=== PATIENT | male | born 1990 | race Caucasian/White ===

== ENCOUNTER 2016-11-11 20:08 | Emergency (ER) | payer OTHER ==
[~2016-11-11] VITALS: Ht 185.4 cm; Wt 97.5 kg
[2016-11-11 20:10] VITALS: BP 150/70; PULSE 72; RESP 20; TEMP 98; O2SAT 98
--- NOTE | 2016-11-11 20:50 | NUR ---
pt to room 1, assumed pt. care
[2016-11-11] MEDS ORDERED: LIDOCAINE 1% 10 MG/ML, 20 ML MDV IJ ONE (21:00)
[2016-11-11] MEDS ORDERED: DIPH-TET-PERTUS Vaccine 0.5 ML VIAL (ADACEL) IM ONE (21:00)
[2016-11-11] MEDS ORDERED: BACITRACIN 1 GM OINT TP ONE (21:00)
--- NOTE | 2016-11-11 21:00 | NUR ---
edin CONNORS at bedside examining the pt.
--- NOTE | 2016-11-11 21:02 | NUR ---
pt. to ER [id number] with a Laceration to his left index finger, as per pt. the injury happened at 1930 when he was cutting a piece of [place] loaf bread, no active bleeding at site at this moment, cap refill < 3 secs, able to move all fingers including the affected one, states took nothing for pain, denies n/v/d denies dizziness, states he took nothing for his pain on quality assurance monitor
--- NOTE | 2016-11-11 21:19 | NUR ---
edin [employer] at bedside for suture placement
[2016-11-11 22:10] VITALS: BP 124/69; PULSE 72; RESP 20; TEMP 98; O2SAT 98
--- NOTE | 2016-11-11 22:10 | NUR ---
Patient given written and verbal discharge instructions and verbalizes understanding. ER shake loader edin discussed with patient the results and treatment provided. Patient in stable condition. ID arm band removed. Rx of keflex motrin bacitracin given. Patient educated on pain management and to follow up with PMD. Pain Scale 0/10 Opportunity for questions provided and answered.
== END 2016-11-11 22:10 | disposition home or self-care (01) ==
LOC: SED 20:08
DX: S61.211A Laceration without foreign body of left index finger without damage to nail, initial encounter (principal); F17.210 Nicotine dependence, cigarettes, uncomplicated; Z71.6 Tobacco abuse counseling; W26.0XXA Contact with knife, initial encounter; Y93.89 Activity, other specified; Y99.8 Other external cause status; Y92.89 Other specified places as the place of occurrence of the external cause
CPT/HCPCS: 12001; 90471; 90715; 99283; J2001

== ENCOUNTER 2017-04-10 23:02 | Emergency (ER) | payer OTHER ==
[~2017-04-10] VITALS: Ht 188 cm; Wt 90.7 kg
[2017-04-10 23:17] VITALS: BP_SYST 125
[2017-04-11] MEDS ORDERED: LORazepam 1 MG TABLET PO ONE (01:15)
[2017-04-11] MEDS ORDERED: HYDROcodone/ACETAMIN 7.5-325 MG TAB PO ONE (01:15)
[2017-04-11 01:25] VITALS: BP_SYST 123
== END 2017-04-11 01:25 | disposition home or self-care (01) ==
LOC: SED 23:02
DX: S20.312A Abrasion of left front wall of thorax, initial encounter (principal); S10.81XA Abrasion of other specified part of neck, initial encounter; V89.2XXA Person injured in unspecified motor-vehicle accident, traffic, initial encounter; Y93.89 Activity, other specified; Y92.410 Unspecified street and highway as the place of occurrence of the external cause; Y99.8 Other external cause status
CPT/HCPCS: 71010; 71100; 93005; 99284